=== PATIENT | female | born 1985 | race Caucasian/White ===

== ENCOUNTER → 2018-01-23 | Outpatient (CLI) | payer OTHER ==
[2018-01-23 14:53] LABS: CHLAMYDIA DNA AMPLIFICATION NEGATIVE (NEGATIVE); GC DNA AMPLIFICATION NEGATIVE (NEGATIVE)
[2018-01-24 10:44] LABS: HEPATITIS B SURFACE ANTIGEN NEGATIVE (NEGATIVE)
[2018-01-24 11:00] LABS: HEPATITIS C VIRUS ABY INDEX 0.1 INDEX (<0.8)
[2018-01-24 11:01] LABS: HEPATITIS B CORE ANTIBODY IGM NEGATIVE (NEGATIVE); HIV 1&2 SCREEN CENTAUR NEGATIVE (NEGATIVE)
[2018-01-24 11:02] LABS: HEPATITIS A ANTIBODY IGM NEGATIVE (NEGATIVE)
[2018-01-25 14:10] LABS: HPV HYBRID CAPTURE II Negative (Negative)
== END ==
LOC: M SMT 09:52
DX: Z11.3 Encounter for screening for infections with a predominantly sexual mode of transmission (principal); Z12.4 Encounter for screening for malignant neoplasm of cervix
CPT/HCPCS: 87340

== ENCOUNTER → 2018-11-18 | Outpatient (CLI) | payer OTHER ==
--- NOTE | 2018-11-18 11:46 | REP ---
ABDOMEN FLAT UPRIGHT, PA CHEST, FIVE VIEWS: HISTORY: Tenderness. A small amount of air is present in the intestine. There are no air fluid levels or dilated loops of intestine. There is no pneumoperitoneum. Calcifications are present in the right upper quadrant consistent with cholelithiasis. The lungs are clear. IMPRESSION: 1. Nonspecific bowel gas pattern. 2. There are calcifications in the right upper quadrant consistent with cholelithiasis. Electronically Signed by Hong Barrera MD 11/18/2018 11:50 A
[2018-11-18 12:54] LABS: BASO # 0.1 10^3/uL (0.0-0.2); BASO % 0.5 % (0.0-1.0); EOS # 0.1 10^3/uL (0.0-0.50); HEMOGLOBIN 13.7 g/dl (12.0-15.5); LYMPH # 1.8 10^3/uL (1.5-4.5); LYMPH % 19.4 % (24.0-44.0); MEAN CORPUSCULAR HEMOGLOBIN 28.5 pg (27.0-33.0); MEAN CORPUSCULAR HGB CONC 33.4 g/dl (32.0-36.5); MEAN CORPUSCULAR VOLUME 85.2 fl (80.0-96.0); MONO # 0.5 10^3/uL (0.0-0.8); MONO % 5.4 % (0.0-5.0); NEUTROPHILS # 6.7 10^3/uL (1.8-7.7); NEUTROPHILS % 73.4 % (36.0-66.0); PLATELET COUNT, AUTOMATED 250 10^3/uL (150-450); RED BLOOD COUNT 4.81 10^6/uL (4.00-5.40); WHITE BLOOD COUNT 9.1 10^3/uL (4.0-10.0)
[2018-11-18 14:05] LABS: ALBUMIN 4.2 GM/DL (3.2-5.2); ALT/SGPT 23 U/L (12-78); AMYLASE 38 U/L (25-115); BILIRUBIN,TOTAL 0.5 MG/DL (0.2-1.0); BLOOD UREA NITROGEN 8 MG/DL (7-18); CALCIUM LEVEL 8.8 MG/DL (8.5-10.1); CARBON DIOXIDE LEVEL 27 MEQ/L (21-32); CHLORIDE LEVEL 104 MEQ/L (98-107); CREATININE FOR GFR 0.65 MG/DL (0.55-1.30); FREE T4 1.11 NG/DL (0.76-1.46); GLOMERULAR FILTRATION RATE > 60.0 (>60); GLUCOSE, FASTING 90 MG/DL (70-100); LIPASE 93 U/L (73-393); POTASSIUM SERUM 4.1 MEQ/L (3.5-5.1); SODIUM LEVEL 139 MEQ/L (136-145); TOTAL PROTEIN 7.6 GM/DL (6.4-8.2)
== END ==
LOC: M WUC 10:36
PROVIDERS: ATTEND Physician Assistant
DX: R10.816 Epigastric abdominal tenderness (principal)

== ENCOUNTER → 2018-11-24 | Outpatient (CLI) | payer OTHER ==
--- NOTE | 2018-11-24 11:39 | REP ---
Right upper quadrant sonography: History: Abdominal tenderness. Question gallstones. Findings: Scanning through the right upper quadrant of the abdomen demonstrates two large shadowing calculi in the gallbladder lumen. Gallbladder wall is not visibly thickened. No pericholecystic fluid is seen. Homogeneous liver parenchyma is seen. There is no focal liver mass lesion. Common bile duct is normal measuring 0.3 cm in greatest diameter. There is a 7 mm hepatic cyst noted. Limited views of the pancreas show no abnormality. There is no evidence of ascites or right renal abnormality. The right kidney measures 9.9 x 5.5 x 4.4 cm. Impression: Cholelithiasis with two large shadowing gallstones. There is a 7 mm hepatic cyst. Otherwise negative right upper quadrant sonography. Electronically Signed by Morgan Carpio MD 11/24/2018 03:42 P
== END ==
LOC: M RAD 08:46
PROVIDERS: ATTEND Physician Assistant
DX: K80.20 Calculus of gallbladder without cholecystitis without obstruction (principal); K76.89 Other specified diseases of liver

== ENCOUNTER 2018-12-10 07:47 | Day surgery (SDC) | payer OTHER ==
[~2018-12-10] VITALS: Ht 157.5 cm; Wt 84.8 kg
[~2018-12-10 07:47] MED LIST: TUMS500C PO
[2018-12-10] MEDS: NS 1,000 ML IV ONE (08:18)
[2018-12-10] MEDS ORDERED: IBUP200T45 PO (08:20)
[2018-12-10] MEDS ORDERED: PROPOFOL 200 MG/20 ML VIAL As Ordered ONE ×2 (08:50→09:06)
[2018-12-10] MEDS ORDERED: LIDOCAINE 2% INJ 100 MG/5 ML SDV (FOR ANES.) As Ordered ONE (08:50)
--- NOTE | 2018-12-10 09:20 | ROOR ---
Patient Name: Jodi Jurado Procedure Date: 12/10/2018 8:54 AM Date of : 1985 Age: 33 Room: [facility] Gender: Female Note Status: Finalized Procedure: Colonoscopy Indications: Hematochezia Providers: DO Kaycee Srinivasan MD: Angela Yarbrough NP Requesting Provider: Medicines: Propofol per Anesthesia Complications: No immediate complications. Procedure: Pre-Anesthesia Assessment: - Prior to the procedure, a History and Physical was performed, and patient medications and allergies were reviewed. The patient is competent. The risks and benefits of the procedure and the sedation options and risks were discussed with the patient. All questions were answered and informed consent was obtained. Patient identification and proposed procedure were verified by the physician, the nurse, the anesthesiologist and the printing technician in the endoscopy suite. Mental Status Examination: alert and oriented. Airway Examination: normal oropharyngeal airway and neck mobility. Respiratory Examination: clear to auscultation. CV Examination: normal. Prophylactic Antibiotics: The patient does not require prophylactic antibiotics. Prior Anticoagulants: The patient has taken no previous anticoagulant or antiplatelet agents. ASA Grade Assessment: II - A patient with mild systemic disease. After reviewing the risks and benefits, the patient was deemed in satisfactory condition to undergo the procedure. The anesthesia plan was to use monitored anesthesia care (MAC). Immediately prior to administration of medications, the patient was re-assessed for adequacy to receive sedatives. The heart rate, respiratory rate, oxygen saturations, blood pressure, adequacy of pulmonary ventilation, and response to care were monitored throughout the procedure. The physical status of the patient was re-assessed after the procedure. The Colonoscope was introduced through the anus and advanced to the cecum, identified by appendiceal orifice and ileocecal valve. The colonoscopy was performed without difficulty. The patient tolerated the procedure well. Findings: The perianal exam findings include non-thrombosed internal hemorrhoids and internal hemorrhoids that prolapse with straining, but spontaneously regress to the resting position (Grade II). A localized area of mildly plaque covered mucosa was found in the transverse colon. Biopsies were taken with a cold forceps for histology. The exam was otherwise without abnormality on direct and retroflexion views. Impression: - Non-thrombosed internal hemorrhoids and internal hemorrhoids that prolapse with straining, but spontaneously regress to the resting position (Grade II) found on perianal exam. - Plaque covered mucosa in the transverse colon. Biopsied. - The examination was otherwise normal on direct and retroflexion views. Recommendation: - Patient has a contact number available for emergencies. The signs and symptoms of potential delayed complications were discussed with the patient. Return to normal activities tomorrow. Written discharge instructions were provided to the patient. - Await pathology results. - Repeat colonoscopy in 3 - 5 years for surveillance based on pathology results. - Return to my office as previously scheduled. Harshil Oliver DO 12/10/2018 9:20:06 AM Electronically signed by Harshil Oliver DO Number of Addenda: 0 Note Initiated On: 12/10/2018 8:54 AM Estimated Blood Loss: Estimated blood loss was minimal.
[2018-12-10 09:45] VITALS: BP 118/78
== END 2018-12-10 10:00 | disposition home or self-care (01) ==
LOC: M OPP 07:47
PROVIDERS: ATTEND Surgery
DX: K63.5 Polyp of colon (principal); K64.1 Second degree hemorrhoids; K63.89 Other specified diseases of intestine; K92.1 Melena

== ENCOUNTER 2018-12-22 07:23 | Day surgery (SDC) | payer OTHER ==
[~2018-12-22] VITALS: Ht 157.5 cm; Wt 87.6 kg
[~2018-12-22 07:23] MED LIST changes: +BUPIVACAINE/EPIN 0.25% 30 ML VIAL As Ordered ONE; +IBUP200T45 PO; +LIDOCAINE 1% MDV 20ML VIAL SQ PRN; +LR 1,000 ML IV ONE
[2018-12-22] MEDS ORDERED: CLAR10CA3 PO (07:53)
[2018-12-22 08:18] LABS: URINE PREG TEST NEGATIVE (NEGATIVE)
[2018-12-22] MEDS ORDERED: ROCURONIUM BROMIDE 50 MG/5 ML VIAL As Ordered ONE (08:43)
[2018-12-22] MEDS ORDERED: MIDAZOLAM INJ 2 MG/2 ML VIAL (J2250) As Ordered ONE (08:43)
[2018-12-22] MEDS ORDERED: KETOROLAC 60 MG/2 ML VIAL (J1885) As Ordered ONE (08:43)
[2018-12-22] MEDS ORDERED: SUGAMMADEX SODIUM 500 MG/5 ML VIAL (BRIDION) As Ordered ONE (08:43)
[2018-12-22] MEDS ORDERED: LIDOCAINE 2% INJ 100 MG/5 ML SDV (FOR ANES.) As Ordered ONE (08:43)
[2018-12-22] MEDS ORDERED: ONDANSETRON 4MG/2ML VIAL (J2405) As Ordered ONE (08:43)
[2018-12-22] MEDS ORDERED: METOCLOPRAMIDE INJ 10MG/2ML VIAL (J2765) As Ordered ONE (08:43)
[2018-12-22] MEDS ORDERED: dexameTHASONE 4 MG/ML 1ML VIAL (J1100) As Ordered ONE (08:43)
[2018-12-22] MEDS ORDERED: PROPOFOL 200 MG/20 ML VIAL As Ordered ONE (08:43)
[2018-12-22] MEDS ORDERED: fentaNYL 250 MCG/5 ML INJECTION (J3010) As Ordered ONE (08:43)
[2018-12-22] MEDS ORDERED: ACETAMINOPHEN 1000MG 100ML IV BTL (OFIRMEV) (J0131 PER 10MG) As Ordered ONE (09:15)
[2018-12-22] MEDS ORDERED: PERCOCET 5MG/325MG TAB As Ordered ONE (09:49)
[2018-12-22] MEDS ORDERED: fentaNYL 100 MCG/2 ML INJECTION (J3010) As Ordered ONE (09:49)
[2018-12-22] MEDS: fentaNYL 100 MCG/2 ML INJECTION (J3010) IV PRN ×4 (09:50→10:05)
[2018-12-22] MEDS: oxyCODONE 5MG TAB PO PRN ×2 (09:55→10:25)
[2018-12-22] MEDS ORDERED: oxyCODONE 5MG TAB As Ordered ONE ×2 (09:55→10:19)
[2018-12-22] MEDS ORDERED: PERCOCET 5MG/325MG TAB PO PRN (10:00)
[2018-12-22] MEDS ORDERED: NORCO, ANEXSIA 5/325MG TABLET (HYDROcodone/ACETAMINOPHEN) PO PRN (10:00)
[2018-12-22] MEDS ORDERED: ONDANSETRON 4MG/2ML VIAL (J2405) IV PRN (10:00)
[2018-12-22] MEDS ORDERED: LR 1,000 ML IV SCH (10:00)
[2018-12-22] MEDS ORDERED: HYDROMORPHONE HCL 0.5 MG/ 0.5 ML SYRINGE (J1170 PER 1) IV PRN (10:00)
--- NOTE | 2018-12-22 10:29 | RO ---
DATE OF PROCEDURE: 12/22/2018 PREOPERATIVE DIAGNOSIS: Symptomatic cholelithiasis. POSTOPERATIVE DIAGNOSIS: Symptomatic cholelithiasis. PROCEDURE: Laparoscopic cholecystectomy. SURGEON: Dr. Harshil Oliver VOICE DATA COMMUNICATIONS ENGINEER: None. ANESTHESIA: General. ESTIMATED BLOOD LOSS: 5 mL. COMPLICATIONS: None. INDICATIONS FOR PROCEDURE: The patient is a 33-year-old female who presents with symptomatic cholelithiasis. Recommendation was the patient proceed with laparoscopic, possible open cholecystectomy. Risks and benefits of the procedure, not limited but including, bleeding, infection, hernia formation, damage to surrounding structures, and need for further surgery, discussed in detail with the patient. Informed consent was obtained, and procedure was planned. PROCEDURE: The patient brought back to operating room 3. After sufficient sedation, the abdomen was sterilely prepped and draped. Next, a time-out was done to confirm proper patient, proper procedure. Following that, 11 mm incision made in the left upper quadrant and a Veress needle inserted and was insufflated 15 mmHg. Next, a 5-mm infraumbilical incision was made and a 5-mm Optiview port was used to gain access to the abdomen. Once the abdomen was entered, Veress needle site was examined. There were no signs of any injury. Veress needle was removed. Two more 5-mm ports were placed in the right upper quadrant. The fundus of the gallbladder was elevated up towards the right shoulder. Veress cystic duct and cystic artery were carefully dissected free using a combination of blunt and sharp dissection. Once they were both clearly identified, they were both doubly clipped and cut. Gallbladder was then removed from gallbladder fossa using electrocautery and brought out through the subxiphoid port site in a 10-mm Endo Catch bag. Abdomen was examined to confirm hemostasis. The abdomen was then desufflated. Skin incisions closed with #4-0 Vicryl subcuticular sutures. The abdomen was cleaned and dried. Steri-Strips, 4x4, and tape were applied, thus ending procedure.
[2018-12-22 11:25] VITALS: BP 135/79
== END 2018-12-22 12:20 | disposition home or self-care (01) ==
LOC: M SDC 07:23
PROVIDERS: ATTEND Surgery
DX: K80.10 Calculus of gallbladder with chronic cholecystitis without obstruction (principal); K21.9 Gastro-esophageal reflux disease without esophagitis; G43.909 Migraine, unspecified, not intractable, without status migrainosus; F41.9 Anxiety disorder, unspecified; Z88.2 Allergy status to sulfonamides
CPT/HCPCS: 47562; 84703; 88304; J0131; J1100; J1885; J2250; J2405; J2765; J3010

== ENCOUNTER → 2022-01-21 | Outpatient (CLI) | payer OTHER ==
[~2022-01-21] MED LIST changes: -BUPIVACAINE/EPIN 0.25% 30 ML VIAL As Ordered ONE; +CLAR10CA3 PO; -IBUP200T45 PO; +IBUP200T46 PO; -LIDOCAINE 1% MDV 20ML VIAL SQ PRN; -LR 1,000 ML IV ONE; +MELA3TAB7 PO
== END ==
LOC: M LABSMTC 09:38
PROVIDERS: ATTEND Anesthesiology
DX: Z01.812 Encounter for preprocedural laboratory examination (principal); Z20.822 Contact with and (suspected) exposure to COVID-19

== ENCOUNTER 2022-01-26 10:07 | Day surgery (SDC) | payer OTHER ==
[~2022-01-26] VITALS: Ht 157.5 cm; Wt 86.2 kg
[~2022-01-26 10:07] MED LIST changes: +LIDOCAINE 2% 100MG/5ML SDV (FOR ANES.) As Ordered ONE; +NS 1,000 ML IV ONE; +propofoL 200 MG/20 ML VIAL As Ordered ONE
[2022-01-26] MEDS ORDERED: propofoL 200 MG/20 ML VIAL As Ordered ONE (11:17)
[2022-01-26 11:50] VITALS: BP 130/83
== END 2022-01-26 11:53 | disposition home or self-care (01) ==
LOC: M OPP 10:07
PROVIDERS: ATTEND Surgery
DX: Z12.11 Encounter for screening for malignant neoplasm of colon (principal); Z86.010 Personal history of colon polyps; K64.0 First degree hemorrhoids; K51.911 Ulcerative colitis, unspecified with rectal bleeding; I10 Essential (primary) hypertension; G43.909 Migraine, unspecified, not intractable, without status migrainosus; Z79.1 Long term (current) use of non-steroidal anti-inflammatories (NSAID); Z88.2 Allergy status to sulfonamides